=== PATIENT | female | born 1950 | race Caucasian/White ===

== ENCOUNTER 2025-04-15 06:09 | Observation (INO) ==
--- NOTE | 2025-03-19 14:38 | PAT Medication Instructions ---
Medication Instructions Date of Service March 19, 2025 Home Medications acetaminophen 500 mg tablet (Tylenol Extra Strength) 500 mg PO Q6H PRN Pain aspirin 81 mg capsule 81 mg PO QAM cholecalciferol (vitamin D3) 50 mcg (2,000 unit) capsule (Vitamin D3) 50 mcg PO QAM citalopram 20 mg tablet 20 mg PO QAM irbesartan 150 mg tablet 150 mg PO QAM metoprolol tartrate 25 mg tablet 25 mg PO BID ranolazine 500 mg tablet,extended release,12 hr 500 mg PO BID rosuvastatin 20 mg tablet 20 mg PO QAM ASK your prescriber and surgeon aspirin 81 mg capsule 81 mg PO QAM DO NOT take the morning of surgery cholecalciferol (vitamin D3) 50 mcg (2,000 unit) capsule (Vitamin D3) 50 mcg PO QAM irbesartan 150 mg tablet 150 mg PO QAM Take morning of surgery With a small sip of water, OTHERWISE NOTHING TO EAT OR DRINK AFTER MIDNIGHT: acetaminophen 500 mg tablet (Tylenol Extra Strength) 500 mg PO Q6H PRN Pain (if needed) citalopram 20 mg tablet 20 mg PO QAM metoprolol tartrate 25 mg tablet 25 mg PO BID ranolazine 500 mg tablet,extended release,12 hr 500 mg PO BID rosuvastatin 20 mg tablet 20 mg PO QAM Take evening before surgery acetaminophen 500 mg tablet (Tylenol Extra Strength) 500 mg PO Q6H PRN Pain (if needed) metoprolol tartrate 25 mg tablet 25 mg PO BID ranolazine 500 mg tablet,extended release,12 hr 500 mg PO BID Other Notes If you have any questions please call us at [phone] or [phone] or [phone] or [phone]
--- NOTE | 2025-03-23 11:16 | Anesthesiology Consultation ---
Date of Service March 23, 2025 Assessment & Plan (1) Encounter for pre-operative examination: - Infectious disease screening: Per assessment on 03/19/25- No known recent infectious disease contacts or current infectious disease symptoms. - Hx difficult intubation: * Difficult intubation letter scanned into chart dated 03/22/2011 indicates "I found it difficult to put a breathing tube in your wind pipe.. this is called a difficult intubation. Although you were never in any immediate danger, this letter is to make you aware of this fact because it could pose a major problem for you during future surgery. You should inform any anesthesiologist who looks after you in the future that you were told you are a difficult intubation." * Patient states the 2010 letter was r/t cholecystectomy that was performed without otherwise noted issue. Patient indicates that she does not believe she has had any subsequent surgery/anesthesia requiring intubation. - Pending: * Elevated creatinine: 1.69 on preop labs. No reported hx of CKD. No comparison labs available. Note written to PCP- Awaiting elevated creatinine response + surgeon-ordered PCP preop evaluation (Dr. Medina, appt 04/01). * Awaiting surgeon-ordered cardiology preop evaluation (Dr. Sparrow, appt 04/03). Chart Review Chart Review: Patient seen in Pre Admission Testing Teaching & Discussion Pre-Anesthesia Teaching/Discussion Notes: Instructed NPO after midnight before surgery,except medications with 15 cc of water. Medication instructions provided according to the PAT guidelines. History Surgery Operation Date: 04/15/25 07:45 Proposed Procedures p C4-C6 Anterior Cervical Discectomy and Fusion, Spinal Cord Monitoring - Rishabh Salazar, Height/Weight Height: 5 ft 4 in Weight: 123.7 kg Allergies Allergy/AdvReac Type Severity Reaction Status Date / Time No Known Allergies Allergy Verified 03/19/25 13:10 Medications Home Medications Medication Instructions Recorded Confirmed Last Taken acetaminophen 500 mg tablet 500 mg PO Q6H PRN Pain 03/19/25 03/19/25 Unknown (Tylenol Extra Strength) aspirin 81 mg capsule 81 mg PO QAM 03/19/25 03/19/25 Unknown cholecalciferol (vitamin D3) 50 50 mcg PO QAM 03/19/25 03/19/25 Unknown mcg (2,000 unit) capsule (Vitamin D3) citalopram 20 mg tablet 20 mg PO QAM 03/19/25 03/19/25 Unknown irbesartan 150 mg tablet 150 mg PO QAM 03/19/25 03/19/25 Unknown metoprolol tartrate 25 mg tablet 25 mg PO BID 03/19/25 03/19/25 Unknown ranolazine 500 mg tablet,extended 500 mg PO BID 03/19/25 03/19/25 Unknown release,12 hr rosuvastatin 20 mg tablet 20 mg PO QAM 03/19/25 03/19/25 Unknown mirabegron 50 mg tablet,extended 50 mg PO DAILY 03/23/25 03/23/25 Unknown release 24 hr (Myrbetriq) Past Medical History Medical History Anxiety Cardiac angina Controlled with Ranolazine daily Follows with Dr. Sparrow Cervical radiculopathy Right arm pain, "pins and needles" Chronic kidney disease Stage [address] Braden ([place]) - in the processing of changing to a different car dropper Chronic neck and back pain Degenerative disc disease Depression Heartburn Diet controlled History of anesthesia reaction Slow to wake up History of COVID-19 ~: cold symptoms, resolved History of non-ST elevation myocardial infarction (NSTEMI) Type II NSTEMI (2018) Per cardio records Hx of renal calculi Single episode - passed on her own Hyperlipidemia Hypertension Osteoarthritis Exercise / Class Metabolic Activity III < 4 Walking/Shop/Light housework Past Family History Family History Other No family history of adverse response to anesthesia Past Surgical History Surgical History History of cardiac cath 2021- "Angiographically normal coronary arteries" History of carpal tunnel release R/L History of cholecystectomy History of colonoscopy History of difficult intubation 2010 cholecystectomy, [facility] [place] Difficult intubation letter scanned into chart, limited details History of esophagogastroduodenoscopy (EGD) History of tonsillectomy S/P SAMMY-BSO Past Anesthesia History Difficult Airway, No Family Hx of Anesthesia Complications and Other (Slow to wake) Difficult intubation letter scanned into chart dated 03/22/2011 indicates "I found it difficult to put a breathing tube in your wind pipe.. this is called a difficult intubation. Although you were never in any immediate danger, this letter is to make you aware of this fact because it could pose a major problem for you during future surgery. You should inform any anesthesiologist who looks after you in the future that you were told you are a difficult intubation." Patient states the 2010 letter was r/t cholecystectomy that was performed without otherwise noted issue. Patient indicates that she does not believe she has had any subsequent surgery/anesthesia requiring intubation. History of PONV No Hx of PONV and No Hx of Motion Sickness Social History Smoking Status: Never smoker Do You Dip or Chew Tobacco: No Hx Alcohol Use: No Hx Substance Use: No substance use type: does not use Review of Systems Stable [place]. Rare episodes of chest pain (deemed atypical by cardio)- at baseline, no changes. No current/recent issues. Patient denies shortness of breath, fever, chills, cough, wheezing, palpitations. Physical Exam Vital Signs BP 113/50 P 54 TEMP 98.4 SP02 96%RA RESP 18 Physical Full cervical extension range of motion. Full TMJ range of motion. TMD 3 finger breaths Mallampati Score III Dentition: missing molars/sides, several crowns Lungs: clear throughout to auscultation Cardiac: regular rate and rhythm, no murmurs noted Spine: normal Carotid arteries: negative bruit Extremities: non-pitting LE edema Lab Results Anesthesia Preop Results Results Anesthesia Widget: WBC 5.79 K/ul (4.8-10.8) 03/23/25 Hgb 13.5 g/dl (12.0-16.0) 03/23/25 Hct 43.2 % (37.0-47.0) 03/23/25 Plt 244 K/uL (130-400) 03/23/25 Na 138 mmol/L (136-145) 03/23/25 K 4.6 mmol/L (3.5-5.1) 03/23/25 Cl 110 mmol/L (98-107) H 03/23/25 CO2 24 mmol/L (21-32) 03/23/25 BUN 31 mg/dl (6-23) H 03/23/25 Creat 1.69 mg/dl (0.6-1.2) H 03/23/25 Glucose Level 89 mg/dl (70-99(Fasting)) 03/23/25 PT 10.4 Seconds (9.0-12.0) 03/23/25 PTT 28 Seconds (21-31) 03/23/25 INR 1.0 (0.9-1.1) 03/23/25 Urine Color Dark Yellow 03/23/25 Urine Appearance Clear (Clear) 03/23/25 Urine pH 5.0 (4.5-7.5) 03/23/25 Urine Specific [place] 1.025 (1.000-1.030) 03/23/25 Urine Protein Negative (Negative) 03/23/25 Urine Glucose (UA) Negative (Negative) 03/23/25 Urine Ketones Trace (Negative) H 03/23/25 Urine Blood Negative (Negative) 03/23/25 Urine Nitrite Negative (Negative) 03/23/25 Urine Bilirubin Negative (Negative) 03/23/25 Urine Urobilinogen Negative (Negative) 03/23/25 Urine Leukocyte Esterase 1+ (Negative) H 03/23/25 Urine WBC (Auto) 21-50 /hpf (0-5) H 03/23/25 Urine RBC (Auto) 6-10 /hpf (0-2) H 03/23/25 Urine Hyaline Casts (Auto) 0-2 /lpf (0-2) 03/23/25 Urine Epithelial Cells (Auto) 6-10 /hpf (0-2) H 03/23/25 Urine Bacteria (Auto) None Seen (None Seen) 03/23/25 Blood Type O Negative 03/23/25 Antibody Screen NEGATIVE 03/23/25 Testing Electrocardiogram Date: 03/23/25 SB at 55bpm. Low voltage QRS. unconfirmed report. Chest X-Ray Date: 03/23/25 Findings: Lungs: Lung whitehead are clear. No evidence of infiltrates, consolidation or mass noted. Diaphragms: No evidence of flattening, elevation or calcification. Pleura: No effusions or pneumothorax identified. Heart: Heart size and its configuration are within normal limits. Aorta: Within normal limits. Pulmonary arteries: Within normal limits. Hilum: Unremarkable. Lines and tubes: None. Impression: No active cardiopulmonary disease. No other abnormality is noted. Echocardiogram Date: 09/08/24 LVEF 50-55%. Grade I DD. Trace AR/MR/WI. Stress Test Date: 10/05/20 No significant ischemia/infarction. The SPECT perfusion images are considered to be within normal limits. Cardiac Catheterization Date: 11/05/21 LVEF 55%. "Angiographically normal coronary arteries." Normal LV ventriculogram. Normal right heart catheterization.
[2025-04-15] MEDS: ACETAMINOPHEN 500 MG TAB PO SCH (06:39)
[2025-04-15 06:57] LABS: Anion Gap 5.0 (3-11); Blood Urea Nitrogen 22.0 mg/dl (6-23); Calcium 8.8 mg/dl (8.6-10.3); Carbon Dioxide 24.0 mmol/L (21-32); Chloride 109.0 mmol/L (98-107); Creatinine Clr Calc Pharmacy 40.3 ml/min; Glucose 96.0 mg/dl (70-99(Fasting)); Potassium 4.8 mmol/L (3.5-5.1); Sodium 138.0 mmol/L (136-145)
[2025-04-15] MEDS ORDERED: ONDANSETRON INJ 2 MG/ML 2 ML VIAL ONE (07:02)
[2025-04-15] MEDS ORDERED: PROPOFOL IV EMULSION 10 MG/ML 20 ML VIAL IV ONE (07:02)
[2025-04-15] MEDS ORDERED: LIDOCAINE 2% 2 ML VIAL/AMP(20MG/ML) INFIL ONE (07:02)
[2025-04-15] MEDS ORDERED: SUGAMMADEX SODIUM 200 MG/2 ML VIAL IV ONE (07:02)
[2025-04-15] MEDS ORDERED: DEXAMETHASONE SOD INJ 4 MG/ML VIAL ONE (07:02)
[2025-04-15] MEDS ORDERED: ROCURONIUM BROMIDE 10 MG/ML 5 ML VIAL IV ONE (07:02)
[2025-04-15] MEDS ORDERED: MIDAZOLAM HCL 1 MG/ML 2ML VIAL ONE (07:02)
[2025-04-15] MEDS: LR 60ML/HR IV SCH (07:04)
[2025-04-15] MEDS: GABAPENTIN 300 MG CAP PO SCH (07:04)
[2025-04-15] MEDS: CeleBREX 200 MG CAP PO SCH (07:04)
[2025-04-15] MEDS: ceFAZolin 3000MG 3,000 MG/72.5 ML BAG IV SCH (07:49)
[2025-04-15] MEDS ORDERED: GLYCOPYRROLATE 0.2 MG/ML VIAL ONE (08:24)
[2025-04-15] MEDS: ceFAZolin 330 MG/ML 1 GM VIAL ONE (08:27)
[2025-04-15] MEDS: FLOSEAL HEMOSTATIC MATRIX 10ML TOP ONE (08:45)
[2025-04-15] MEDS ORDERED: ONDANSETRON INJ 2 MG/ML 2 ML VIAL IV PRN ×2 (09:11→12:54)
[2025-04-15] MEDS ORDERED: PROMETHAZINE HCL 6.25 MG in SODIUM CHLORIDE 0.9% 50 ML IV PRN (09:11)
[2025-04-15] MEDS ORDERED: ATROPINE SULFATE 0.1 MG/ML 10ML SYR IV PRN (09:11)
--- NOTE | 2025-04-15 09:20 | Operative Report ---
Post Operative Report Pre & Post Diagnosis Operation Date: 04/15/25 07:45 Pre-Op Diagnosis: Cervical Spondylosis with Radiculopathy, Cervical Stenosis Post-Op Diagnosis: Cervical Spondylosis with Radiculopathy, Cervical Stenosis I identified the patient and participated in the time-out.: Yes Procedure Operation Date: 04/15/25 07:45 Actual Procedures #1 anterior cervical discectomy with bilateral foraminotomies C4-C5 C5-C6. #2 anterior cervical arthrodesis C4-C5 C5-C6. #3 placement of Spira 8 mm cage at C4-C5 and 7 mm cage at C5-C6 both filled with os design bone graft. #4 cages and plate screws applied from C4-C6. Surgeon Rishabh Salazar, DO Watch Inspector Heena Garcia Estimated Blood Loss 10 Findings See Below The patient is 5 foot 4 weighing over 126 kg with a BMI in excess of 47. The patient's body habitus did contribute to significant technical difficulty with positioning exposure and the procedure itself adding at least 50% increased operative time. And recommending a modifier 22. Specimens None Indications This is a 75-year-old female presents above-mentioned diagnosis depending course of nonoperative care she is here for surgical invention. Description of Procedure Patient was met with identified informed consent obtained. Patient was then taken to the operative suite underwent intubation placed in a supine position injected with a [place] head strength and conditioning coach. All bony promises well-padded eyes inspected to ensure no external pressure placed upon them. At this time the anterior cervical spine was prepped and draped in normal sterile fashion. With the assistance of fluoroscopy identified the C5 vertebral body and a transverse incision was placed on the right anterior aspect the cervical spine overlying this region. Blunt dissection with the assistance of bipolar electrocautery was performed down to expose the anterior cervical spine from C4-C6. A self- retaining retractor was placed. Then performed a complete discectomy of C4-C5 out to the uncovertebral joints bilaterally. [place] distracting pins utilized to assist in visualization. I removed all posterior annular fibers longitudinal ligament bilateral foraminotomies performed. Endplates burred to subcortical and bone and 8 mm Spira cage filled with os design tapped in position. Then proceeded to C5-C6. Again complete discectomy performed. [place] distracting pins again utilized. Removed all posterior annular fibers and longitudinal ligament with bilateral foraminotomies. Endplates burred to subcortical bleeding bone and a 7 mm Spira cage filled with os design bone graft tapped in position. Distractor apparatus was removed. All anterior osteophytes burred to a smooth cortical surface and a K2 M plate and screws applied with the assistance of fluoroscopy. Incision was then copiously irrigated explored to ensure no damage to surrounding structures remaining bleeding. 10 round STEPHANE drain inserted. The incision was then closed with 2 Vicryl for fascia 4-0 Monocryl for final skin closure. Steri-Strips sterile dressing placed. Patient waken taken to PACU in stable condition. Please note spinal cord monitoring visualized after procedure no changes noted. Heena Garcia was present of the entire surgery involved the patient positioning complex portion of the surgery and final skin closure. I attest to the content of the Intraoperative Record and any orders documented therein. Any exceptions are noted below.
--- NOTE | 2025-04-15 10:04 | Anesthesiology Progress Note ---
Date of Service April 15, 2025 Anesthesia Post Procedure Vital Signs Vital Signs: Temp Pulse Resp BP Pulse Ox O2 Del Method 04/15/25 06:32 36.9 C 62 20 153/57 H 94 Room Air Transfer of Care Handoff Completed per policy Notes Mental Status: alert / awake / arousable Patient Amnestic to Procedure: Yes Nausea / Vomiting: adequately controlled Pain: adequately controlled Airway Patency, RR, SpO2: stable & adequate BP & HR: stable & adequate Hydration State: stable & adequate Anesthetic Complications: no major complications apparent
--- NOTE | 2025-04-15 10:18 | Fluoroscopy Report ---
FL cervical 2-3V CLINICAL HISTORY: C4-C6 ACDF COMPARISON STUDY: None FLUOROSCOPY TIME: 7 seconds FLUOROSCOPY IMAGES: 3 EXPOSURE DOSE: 0.9 mGy FINDINGS: Fluoroscopy was provided for lower cervical spine anterior instrumented fusion. IMPRESSION: Intraoperative fluoroscopy. ACT 112: Negative or not required by law. Electronically signed by: Fran Baker M.D. 04/15/2025 10:16 AM
[2025-04-15] MEDS ORDERED: RACEPINEPHRINE 2.25% NEBU SOLN 0.5 ML VIAL INH PRN (12:54)
[2025-04-15] MEDS ORDERED: LORazepam 0.5 MG TAB PO PRN (12:54)
[2025-04-15] MEDS ORDERED: ONDANSETRON 4 MG OD TAB PO PRN (12:54)
[2025-04-15] MEDS ORDERED: HYDROmorphone INJ 0.5 MG/0.5 ML SYR IV PRN (12:54)
[2025-04-15] MEDS ORDERED: HYDROmorphone INJ 1 MG/ML SYRINGE IV PRN (12:54)
[2025-04-15] MEDS ORDERED: ALUMINUM/MAGNESIUM SUSP 30 ML UDC PO PRN (12:54)
[2025-04-15] MEDS ORDERED: SOD PHOSPHATE/SOD BIPHOSPHATE ENEMA 132 ML BTL PR PRN (12:54)
[2025-04-15] MEDS ORDERED: FAMOTIDINE 20 MG TAB PO PRN (12:54)
[2025-04-15] MEDS ORDERED: dexAMETHasone 8 MG in SYRINGE 0 ML IV PRN (12:54)
[2025-04-15] MEDS ORDERED: NALOXONE HCL 0.4 MG/1 ML VIAL/CARP IV PRN (12:54)
[2025-04-15] MEDS ORDERED: METOCLOPRAMIDE HCL INJ 5 MG/ML 2 ML VIAL IV PRN (12:54)
[2025-04-15] MEDS ORDERED: ACETAMINOPHEN 1,000 MG/100 ML VIAL IV PRN (12:54)
[2025-04-15] MEDS ORDERED: DO NOT ADMINISTER FLU VACCINE PRN (12:54)
[2025-04-15] MEDS ORDERED: MAGNESIUM HYDROXIDE SUSP 30 ML UDC PO PRN (12:54)
[2025-04-15] MEDS ORDERED: diphenhydrAMINE Capsule 25 MG CAP PO PRN (12:54)
[2025-04-15] MEDS ORDERED: DO NOT ADMINISTER PNEUMOCOCCAL VACCINE PRN (12:54)
[2025-04-15] MEDS ORDERED: PROMETHAZINE 12.5 MG/50.5 ML BAG IV PRN (12:54)
[2025-04-15] MEDS: ACETAMINOPHEN 1000 MG/100 ML IV IV ONE (15:09)
--- NOTE | 2025-04-15 15:14 | Hospitalist Consultation ---
Date of Consultation April 15, 2025 Assessment & Plan (1) Cervical radiculopathy: (2) Hyperlipidemia: (3) Hypertension: (4) Depression: (5) Anxiety: Plan Marissa is a 75F with a PMHx of HLD, HTN, CKD3 and OAB who presents to the hospital for elective c-spine surgery with Dr. Salazar. Hospital Medicine consulted for medical management. #cervical radiculopathy - C4-C6 ACDF with Dr. Salazar on 04/15 Management per primary team AM CBC and BMP we will follow EBL 10 With O2 needs post op - wean as able. Encourage IS #HLD - continue statin #HTN - continue metoprolol. Hold irbesartan pending AM labs #Mental health - continue celexa #OAB - continue myrbetriq or formulary equivalent Thank you for allowing us to participate in the care of this patient, please reach out with any questions or concerns. Hospital medicine will continue to follow. History of Present Illness Reason for Consultation: medical management Requesting Physician: Dr. salazar Attending Physician: Rishabh Salazar, DO History of Present Illness Marissa is a 75F with a PMHx of HLD, HTN, CKD3 and OAB who presents to [facility] for elective c-spine surgery with Dr. Salazar.Seen post operatively sitting up in the chair, daughter present at bedside. Reports feeling very well. Pain is tolerable. No longer having pain down the arms. Last BM yesterday evening. Does not normally wear oxygen at home. Allergies Allergy/AdvReac Type Severity Reaction Status Date / Time No Known Allergies Allergy Verified 04/15/25 06:33 Home Medications Medication Instructions Recorded Confirmed Type acetaminophen 500 mg tablet 500 mg PO Q6H PRN Pain 03/19/25 04/15/25 History (Tylenol Extra Strength) aspirin 81 mg capsule 81 mg PO QAM 03/19/25 04/15/25 History cholecalciferol (vitamin D3) 50 50 mcg PO QAM 03/19/25 04/15/25 History mcg (2,000 unit) capsule (Vitamin D3) citalopram 20 mg tablet 20 mg PO QAM 03/19/25 04/15/25 History irbesartan 150 mg tablet 150 mg PO QAM 03/19/25 04/15/25 History metoprolol tartrate 25 mg tablet 25 mg PO BID 03/19/25 04/15/25 History ranolazine 500 mg tablet,extended 500 mg PO BID 03/19/25 04/15/25 History release,12 hr rosuvastatin 20 mg tablet 20 mg PO QAM 03/19/25 04/15/25 History mirabegron 50 mg tablet,extended 50 mg PO DAILY 03/23/25 04/15/25 History release 24 hr (Myrbetriq) oxycodone 5 mg tablet 5 mg PO Q6H PRN pain #30 tabs 04/15/25 Rx tramadol 50 mg tablet 50 mg PO Q6H PRN pain, moderate 04/15/25 Rx #30 tabs Patient History Medical History Anxiety Cardiac angina Controlled with Ranolazine daily Follows with Dr. Sparrow Cervical radiculopathy Right arm pain, "pins and needles" Chronic kidney disease Stage [address] Braden ([place]) - in the processing of changing to a different donor recruitment manager Chronic neck and back pain Degenerative disc disease Depression Heartburn Diet controlled History of anesthesia reaction Slow to wake up History of COVID-19 ~2020/2021: cold symptoms, resolved History of non-ST elevation myocardial infarction (NSTEMI) Type II NSTEMI (2018) Per cardio records Hx of renal calculi Single episode - passed on her own Hyperlipidemia Hypertension Osteoarthritis Surgical History History of cardiac cath 2021- "Angiographically normal coronary arteries" History of carpal tunnel release R/L History of cholecystectomy History of colonoscopy History of difficult intubation 2010 cholecystectomy, [facility] [place] Difficult intubation letter scanned into chart, limited details History of esophagogastroduodenoscopy (EGD) History of tonsillectomy S/P SAMMY-BSO Family History Other No family history of adverse response to anesthesia Social History Smoking Status: Never smoker Second Hand Exposure: No; Do You Dip or Chew Tobacco: No; Tobacco Cessation Education Requested by Patient: No Hx Alcohol Use: No Hx Substance Use: No Preferred Language: Danish Communication Ability: Effective Window Shade Ring Coverer Required: No Beliefs That Will Affect Care: None Current Living Situation: Alone Other Information That Helps Us Care for You: No Feels Safe at Home: Yes Safety Concerns: Feels Safe At This Time Assistive Devices: Cane, Glasses and Walker Assistive Devices Comment: cane and walker PRN Review of Systems Review of Systems: All systems reviewed & are unremarkable except as noted in Subjective Physical Exam Physical Exam: General: NAD, VS as above Resp: normal respiratory effort, lungs clear to auscultation, on 2L NC CV: RRR, no murmur, Abd: normal bowel sounds, non tender, soft Extremities: Moves all extremities,glenn hose in place Neuro: A&O x3, Results & Data Results & Data Vital Signs (Past 12 Hours) Vital Signs Temp Pulse Pulse Resp BP BP Pulse Ox 04/15/25 14:24 98.2 F 97 H 16 163/77 H 94 04/15/25 13:45 98.2 F 65 15 171/58 H 96 04/15/25 12:45 63 16 172/61 H 98 04/15/25 12:15 62 14 150/63 H 97 04/15/25 11:45 64 12 148/74 H 96 04/15/25 11:30 64 15 158/56 H 98 04/15/25 11:15 60 14 175/60 H 99 04/15/25 11:00 59 L 12 164/76 H 99 04/15/25 10:50 60 12 169/74 H 99 04/15/25 10:40 97.7 F 62 14 171/71 H 100 04/15/25 10:30 61 12 179/58 H 99 04/15/25 10:20 61 17 169/68 H 99 04/15/25 10:10 65 15 151/69 H 99 04/15/25 10:00 59 L 11 L 167/71 H 94 04/15/25 09:50 59 L 12 172/64 H 96 04/15/25 09:40 58 L 23 172/70 H 97 04/15/25 09:31 96.8 F L 54 L 16 161/83 H 98 04/15/25 06:32 98.4 F 62 20 153/57 H 94 O2 Del Method O2 Flow Rate 04/15/25 14:24 Nasal Cannula 2 04/15/25 13:45 Nasal Cannula 2 04/15/25 12:45 Nasal Cannula 2 04/15/25 12:15 Nasal Cannula 2 04/15/25 11:45 Nasal Cannula 2 04/15/25 11:30 Nasal Cannula 2 04/15/25 11:15 Nasal Cannula 2 04/15/25 11:00 Nasal Cannula 2 04/15/25 10:50 Nasal Cannula 2 04/15/25 10:40 Nasal Cannula 2 04/15/25 10:30 Nasal Cannula 2 04/15/25 10:20 Nasal Cannula 2 04/15/25 10:10 Oxymask 2 04/15/25 10:00 Oxymask 2 04/15/25 09:50 Oxymask 9 04/15/25 09:40 Oxymask 9 04/15/25 09:31 Oxymask 9 04/15/25 06:32 Room Air Laboratory Results BMP reviewed PG Care Time/CCT Total # of Minutes Spent Total Time Spent with Patient: Total time spent is greater than 50% in coordination of care (as documented) at patient's floor/unit and/or counseling patient: Coding Level of Care Code 91462 IN/OBS CONSULT LVL 3,45M Diagnoses Cervical radiculopathy M54.12 Hyperlipidemia E78.5 Hypertension I10 Depression F32.A Anxiety F41.9
[2025-04-15] MEDS: LACTATED RINGER'S 1,000 ML IV SCH (15:21)
[2025-04-15] MEDS: dexAMETHasone 6 MG in SYRINGE 0 ML IV SCH (16:09)
[2025-04-15] MEDS: METOPROLOL TARTRATE 25 MG TAB PO SCH (20:32)
[2025-04-15] MEDS: RANOLAZINE 500 MG ER TAB PO SCH (20:32)
[2025-04-15] MEDS: DOCUSATE SODIUM/SENNA 50/8.6MG TAB PO SCH (20:32)
[2025-04-16] MEDS: ACETAMINOPHEN 500 MG TAB PO PRN (00:22)
[2025-04-16] MEDS: POLYETHYLENE (MIRALAX) 17 GM PACK PO SCH (05:57)
[2025-04-16 07:04] LABS: Hematocrit (blood only) 42.8 % (37.0-47.0); Hemoglobin 13.4 g/dl (12.0-16.0); Mean Corpuscular Hemoglobin 26.7 pg (25.0-34.0); Mean Corpuscular Volume 85.4 fL (80.0-100.0); Platelet Count 213 K/uL (130-400); RDW Standard Deviation 44.1 fL (36.4-46.3); Red Blood Count 5.01 M/uL (4.20-5.40); White Blood Count 6.60 K/ul (4.8-10.8)
[2025-04-16 07:27] LABS: Anion Gap 5.0 (3-11); Blood Urea Nitrogen 20.0 mg/dl (6-23); Calcium 9.0 mg/dl (8.6-10.3); Carbon Dioxide 25.0 mmol/L (21-32); Chloride 106.0 mmol/L (98-107); Creatinine Clr Calc Pharmacy 46.4 ml/min; Glucose 131.0 mg/dl (70-99(Fasting)); Potassium 5.1 mmol/L (3.5-5.1); Sodium 136.0 mmol/L (136-145)
[2025-04-16 08:13] VITALS: O2SAT 99
--- NOTE | 2025-04-16 08:27 | Discharge Summary ---
Date of Service April 16, 2025 Admission HPI Per Admitting Provider Marissa is being discharged home on postoperative day 1 status post ACDF C4-5, C5- 6. She has had an uneventful hospital course. Arm pain resolved. No neck pain. She is up and ambulatory to the restroom and voiding without issue. Has some mild dysphagia but is tolerating a regular diet. No dysphonia. No other complaints. Admission Exam (Per Admitting) Constitutional WD/WN, vitals as above Eyes normal visual whitehead by confrontation ENMT external ear and nose normal, oropharynx normal Neck normal visual inspection Respiratory normal respiratory effort Cardiovascular Extremities: normal capillary refill Gastrointestinal (Abdomen) normal bowel sounds, soft, nontender, no hepatosplenomegaly Musculoskeletal Head/Neck/Chest: + limited ROM of neck Extremities: extremities normal to inspection and strength 5/5 throughout Skin no rashes, warm and dry Neurologic normal touch/pain/proprioception and moves all extremities Psychiatric A+Ox3, euthymic affect Eye Contact: good eye contact Discharge Data Consultations 04/15/25 12:54 Consult Hospitalist Routine Procedures Performed Operation Date: 04/15/25 07:45 Actual Procedures p C4-C6 Anterior Cervical Discectomy and Fusion, Spinal Cord Monitoring(Not Applicable) - Rishabh Salazar, Hospital Course (1) Cervical radiculopathy: Debra is being discharged home on postoperative day 1 status post ACDF C4-5, C5- 6. All questions have been answered in detail. Will DC STEPHANE drain and dressing changes prior to discharge. She will follow-up in our office in 2 weeks. Discharge Instructions ACTIVITY RECOMMENDATIONS: SELF CARE INSTRUCTIONS AFTER CERVICAL FUSIONS 1. No smoking. Smoking drastically decreases the chance of a solid fusion. 2. No bending, lifting more than 5 pounds, or twisting (roll like a log when turning in bed). 3. You may shower 3 days after surgery. Thoroughly dry wound. Do not soak in the tub. 4. Cervical collar: Must be worn at all times including sleeping. You may remove the brace only to bath, eat and if you are sitting in a recliner. 5. Please walk as much as you can for exercise. Gradually increase the distance that you walk as your endurance increases. 6. You may return to previous diet. SPECIAL CARE INSTRUCTIONS: VERY IMPORTANT TO READ AND REVIEW A. Do not take any anti-inflammatory medications (i.e. Indocin, Advil, Aspirin, Naprosyn, Aleve, Motrin, etc.) as these may inhibit the chance of a solid fusion. Tylenol is okay to take. B. Your surgical incision has been closed with a cosmetic suture under the skin that will dissolve in about 6 weeks. In 14 days, you can use a pair of clean scissors and cut the suture that is left outside of the skin at the ends of your incision. C. Complications are uncommon, but please contact us if you have any signs or symptoms of: 1. wound infection (fever higher than 102.5 degrees F, redness, separation of wound, drainage, or increasing pain from the incision) 2. blood clots in legs (pain, swelling, redness and warmth in legs) 3. urinary tract infection (fever higher than 102.5 degrees, burning upon urination or increased frequency of urination) 4. nerve problems (inability to walk on your toes or heels, numbness, loss of bowel or bladder control) 5. any other symptoms that concern you. D. Please call the office at if you have any concerns or questions about your operation or recovery. MANAGING PAIN AFTER SPINAL SURGERY 1. Narcotic medication is intended for short-term use and will be provided for surgical pain. Surgical pain usually lasts for a period of 4-6 weeks. Narcotic medication includes Percocet, Vicodin, Darvocet, Tylenol #3 or Lortab. 2. Longer-term pain is more appropriately treated with non-narcotic medication such as Tylenol ES. 3. Muscle spasm is not appropriately treated with narcotics. Muscle relaxers such as Soma, Flexeril or Skelaxin can be used along with Tylenol ES. 4. Remember that we all live with some "aches and pains". This is not unusual or uncommon after an injury or as we get older. 5. We will provide appropriate medication within the normal guidelines of their prescribed use. We will also be very cautious and aware of potential abuse and extended duration of patients' medication needs. 6. Please allow 2-3 days to process refills. Prescriptions will not be mailed but must be picked up at the office. FOLLOW UP VISIT: Keep your scheduled follow-up appointment. Any questions, please call the office at .
[2025-04-16] MEDS: ASPIRIN 81 MG ECTAB PO SCH (08:37)
[2025-04-16] MEDS: CITALOPRAM 20 MG TAB PO SCH (08:37)
[2025-04-16] MEDS: ROSUVASTATIN CALCIUM 20 MG TAB PO SCH (08:37)
[2025-04-16] MEDS: VIBEGRON 75 MG TAB PO SCH (08:37)
[2025-04-16] MEDS: CHOLECALCIFEROL 25 MCG (1000 UNITS) TAB PO SCH (08:37)
[2025-04-16] MEDS ORDERED: LOSARTAN POTASSIUM 50 MG TAB PO SCH (09:00)
[2025-04-16 09:40] VITALS: BP 141/59; RESP 14; TEMP 98.1
[2025-04-16 10:52] VITALS: PULSE 65
== END 2025-04-16 11:37 | disposition home or self-care (01) ==
LOC: ASU 06:09 → PACUINP 09:23 → INTOOBSV 09:23 → 3W 14:49